=== PATIENT | male | born 1975 | race Caucasian/White ===

== ENCOUNTER 2018-09-21 19:32 | Emergency (ER) | payer BC, OTHER ==
[2018-09-21 19:48] VITALS: BP 108/76; PULSE 69; RESP 20; TEMP 98.2
[2018-09-21] MEDS ORDERED: PROPARACAINE 0.5% OPHTH DROPS 15 ML BTL RIGHT EYE STA (20:11)
--- NOTE | 2018-09-21 21:32 | ED ---
Eye Problem HPI - General Chief complaint: Eye Problems Stated complaint: FB in Eye Time Seen by Provider: 09/21/18 19:50 Source: patient Mode of arrival: ambulatory Limitations: no limitations - History of Present Illness Initial comments: 33-year-old male the past medical history presenting today for chief complaint of right eye pain. 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 Patient states that he rinsed, he states only small amount was in the eye. Patient states that rinsing he had some mild pain and presented decided to present for violation. Patient states upon arrival the pain subsided. He denies any vision loss. He denies any blurred vision. Patient denies any erythema of the eye.review of systems negative. Upon arrival patient appears wellevidence of photophobia. Appearing comfortable.Patient denies any recent fever, chills, shortness of breath, chest pain, back pain, abdominal pain, nausea or vomiting, numbness or tingling, dysuria or hematuria, constipation or diarrhea, headaches or visual changes, or any other complaints.vital signs within acceptable limits - Related Data Home Medications Medication Instructions Recorded Confirmed No Known Home Medications 09/21/18 09/21/18 Allergies Allergy/AdvReac Type Severity Reaction Status Date / Time acetaminophen [From Vicodin] Allergy Rash/Hives Verified 09/21/18 19:48 hydrocodone [From Vicodin] Allergy Rash/Hives Verified 09/21/18 19:48 Review of Systems ROS Statement: Those systems with pertinent positive or pertinent negative responses have been documented in the HPI. ROS Other: All systems not noted in ROS Statement are negative. Past Medical History Past Medical History: Cancer Additional Past Medical History / Comment(s): lymph edema History of Any Multi-Drug Resistant Organisms: None Reported Past Surgical History: Hernia Repair, Orthopedic Surgery Past Psychological History: No Psychological Hx Reported Smoking Status: Never smoker Past Alcohol Use History: None Reported Past Drug Use History: None Reported General Exam - General Exam Comments Initial Comments: General: The patient is awake and alert, in no distress, and does not appear acutely ill. Eye: +3 mm pupils are equal, round and reactive to light, extra-ocular movemen ts are intact. No nystagmus. There is normal conjunctiva bilaterally. No signs of icterus. no widening of the cornea. No uptake of fluorescein. Visual acuity intact. Ears, nose, mouth and throat: There are moist mucous membranes and no oral lesions. Neck: The neck is supple, there is no tenderness or JVD. Cardiovascular: There is a regular rate and rhythm. No murmur, rub or gallop is appreciated. Respiratory: Lungs are clear to auscultation, respirations are non-labored, breath sounds are equal. No wheezes, stridor, rales, or rhonchi. Musculoskeletal: Normal ROM, no tenderness. Strength 5/5. Sensation intact. Pulses equal bilaterally 2+. Neurological: A&O x 3. CN II-XII intact, There are no obvious motor or sensory deficits. Coordination appears grossly intact. Speech is normal. Skin: Skin is warm and dry and no rashes or lesions are noted. Psychiatric: Cooperative, appropriate mood & affect, normal judgment. Limitations: no limitations Course Vital Signs 09/21/18 19:44 Temperature 98.2 F Pulse Rate 69 Respiratory 20 Rate Blood Pressure 108/76 O2 Sat by Pulse 97 Oximetry Medical Decision Making - Medical Decision Making first 3-year-old presenting today for detergent and right eye. Patient states a small amount. Patient had no pain photophobia or conjunctival injection upon arrival. There is no widening of the cornea. Patient had visual acuity intact no deficits. Denies any visual complaints denied pain, or blurred vision. Fluorescein exam unremarkable. No defects of the cornea. Patient eye numbed with proparacaine then irrigated with Brayan lens 800 mL. discussed case attending provider Dr. Brenner. At this time feel patient is stable for discharge with outpatient ophthalmology follow-up. Patient scribbled plan discharge. Patient requesting to go home, stating he has no symptoms. Patient discharged appearing well Disposition Clinical Impression: Eye pain, Liquid substance in eye Disposition: HOME SELF-CARE Condition: Good Instructions (If sedation given, give patient instructions): Eye Wash (Into the eye), Eye Pain (ED) Additional Instructions: Please use medication as discussed. Please follow-up with ophthalmology in the next 2 days Please return to emergency room if the symptoms increase or worsen or for any other concerns. Is patient prescribed a controlled substance at d/c from ED?: No Referrals: Danielito Thomas DO [Primary Care Provider] - 1-2 days Cristopher Chery MD [STAFF PHYSICIAN] - 1-2 days Time of Disposition: 21:32
== END 2018-09-21 21:37 | disposition home or self-care (01) ==
LOC: EC 19:32
DX: H57.11 Ocular pain, right eye (principal); Z77.098 Contact with and (suspected) exposure to other hazardous, chiefly nonmedicinal, chemicals; Z88.5 Allergy status to narcotic agent; Z85.9 Personal history of malignant neoplasm, unspecified
CPT/HCPCS: 99283

== ENCOUNTER → 2019-04-15 | Outpatient (CLI) | payer OTHER ==
--- NOTE | 2019-04-15 13:07 | US ---
EXAMINATION TYPE: US abdomen complete DATE OF EXAM: 04/15/2019 COMPARISON: NONE CLINICAL HISTORY: R10.11 RUQ Pain. RUQ pain and nausea for 3 weeks EXAM MEASUREMENTS: Liver Length: 16.0 cm Gallbladder Wall: 0.3 cm CBD: 0.3 cm Spleen: 10.5 cm Right Kidney: 10.3 x 4.5 x 3.9 cm Left Kidney: 10.1 x 4.9 x 4.9 cm Technical limitations due to large amount of overlying bowel content Pancreas: Obscured by bowel gas Liver: There is increased echogenicity of the hepatic parenchyma with diminished visualization of the portal triads most commonly relating to hepatic steatosis and limiting evaluation for underlying hep atic masses. Gallbladder: no evidence of stones no pericholecystic fluid. Evidence for sonographic Hutton's sign: yes CBD: appears wnl Spleen: Hyperechoic punctate probable granulomas. Right Kidney: no evidence of hydronephrosis Left Kidney: no evidence of hydronephrosis Upper IVC: wnl Abd Aorta: bifurcation obscured The liver is heterogenous. The intrahepatic portion of the IVC and proximal abdominal aorta are withi n normal limits. There is no evidence of cholelithiasis. Common bile duct is unremarkable. The sple en is unremarkable. Kidneys are symmetric and free of hydronephrosis. No renal lesions are seen. IMPRESSION: 1. No sonographic evidence of cholelithiasis nor acute cholecystitis. HIDA scan could be considered g iven this patient's positive sonographic Hutton sign. 2. Sonographic findings most commonly related to hepatic steatosis. Correlate with liver function kelton ts. 3. Obscuration of the pancreas by overlying bowel gas.
== END ==
LOC: RADUSWWP 07:28
PROVIDERS: ATTEND Internal Medicine
DX: R93.3 Abnormal findings on diagnostic imaging of other parts of digestive tract (principal)
CPT/HCPCS: 76700

== ENCOUNTER → 2019-04-25 | Outpatient (CLI) | payer OTHER ==
[2019-04-25 18:07] LABS: Albumin 4.3 g/dL (3.80-4.90); Albumin/Globulin Ratio 2.53 (1.60-3.17); Bilirubin, Conjugated 0.2 mg/dL (0.20-0.40); Bilirubin,Unconjugated 0.4 mg/dL; Globulin 1.7 g/dL (1.6-3.3); Total Bilirubin 0.6 mg/dL (0.2-1.2)
== END | disposition home or self-care (01) ==
LOC: LABWHC1 08:36
PROVIDERS: ATTEND Internal Medicine
DX: R10.9 Unspecified abdominal pain (principal)
CPT/HCPCS: 36415; 80076; 82150; 83690

== ENCOUNTER → 2019-08-07 | Outpatient (CLI) | payer OTHER ==
--- NOTE | 2019-08-07 09:41 | NM ---
Nuclear medicine hepatobiliary scan. HISTORY: Pain. COMPARISON: Ultrasound 04/15/2019 DOSAGE: The patient received 8 ounces of ensure plus and 5.0 mCi of Technetium 99m Choletec. FINDINGS: There is normal hepatic extraction. The gallbladder is seen by 20 minutes. There is bilia ry to bowel clearance by 30 minutes. Ejection fraction is 81%. IMPRESSION: 1. No evidence of cholecystitis. 2. Ejection fraction of 81%.
== END | disposition home or self-care (01) ==
LOC: RADNMMAIN 06:46
PROVIDERS: ATTEND Internal Medicine Gastroenterology
DX: R10.13 Epigastric pain (principal)
CPT/HCPCS: 78226; A9537

== ENCOUNTER → 2020-01-13 | Outpatient (CLI) | payer OTHER ==
--- NOTE | 2020-01-13 09:44 | XR ---
EXAMINATION TYPE: XR chest 2V DATE OF EXAM: 01/13/2020 COMPARISON: 09/27/2011 HISTORY: 44-year-old male with cough and weight loss TECHNIQUE: Frontal and lateral views FINDINGS: Heart normal size. Aorta and pulmonary vasculature within normal limits. Mild patchy opacity adjacent to the right heart margin. No other consolidation or pleural effusion. Unchanged asymmetric elevatio n left hemidiaphragm. IMPRESSION: Some mild patchy atelectasis versus early infiltrate/pneumonia near the right heart margin.
[2020-01-13 10:11] LABS: HCT 44.5 % (39.0-53.0); HGB 14.4 gm/dL (13.0-17.5); MCH 30.1 pg (25.0-35.0); MCHC 32.4 g/dL (31.0-37.0); MCV 92.9 fL (80.0-100.0); Mean Platelet Volume 7.3; Platelet Count 372 k/uL (150-450); RBC 4.79 m/uL (4.30-5.90); RDW 12.8 % (11.5-15.5); WBC 5.1 k/uL (3.8-10.6)
[2020-01-13 12:39] LABS: Erythrocyte Sedimentation Rate 19 mm/hr (0-15)
[2020-01-13 18:22] LABS: ALT 87 U/L (10-49); AST 45 U/L (14-35); African American GFR (CKD) 104.1 (60.0-200.0); Albumin/Globulin Ratio 1.82 (1.60-3.17); Alkaline Phosphatase 26 U/L (41-126); Calcium 8.8 mg/dL (8.7-10.3); Carbon Dioxide 27.8 mmol/L (21.6-31.8); Chloride 104 mmol/L (96-109); Globulin 2.2 g/dL (1.6-3.3); Glucose 92 mg/dL (70-110); Non-African American GFR(CKD) 89.9 (60.0-200.0); Potassium 4.2 mmol/L (3.5-5.5); Sodium 140 mmol/L (135-145); Total Bilirubin 0.5 mg/dL (0.2-1.2); Total Protein 6.2 g/dL (6.2-8.2)
[2020-01-16 06:52] LABS: Hepatitis A Antibody IgM Non-Reactive (Non-Reactive); Hepatitis B Core IgM Non-Reactive (Non-Reactive); Hepatitis B Surface Antigen Non-Reactive (Non-Reactive); Hepatitis C IgG Antibody Non-Reactive (Non-Reactive)
== END | disposition home or self-care (01) ==
LOC: LABWHC1 08:28
PROVIDERS: ATTEND Internal Medicine
DX: R53.83 Other fatigue (principal); W57.XXXA Bitten or stung by nonvenomous insect and other nonvenomous arthropods, initial encounter; R05 Cough; R63.4 Abnormal weight loss; R94.5 Abnormal results of liver function studies
CPT/HCPCS: 36415; 71046; 80053; 80074; 84439; 84443; 85027; 85652; 86618